=== PATIENT | male | born 1945 | race Caucasian/White ===

== ENCOUNTER → 2021-06-13 13:31 | Outpatient (BNVA) | payer MEDICARE, SELFPAY | PROVIDERS: PCP Pediatrics; Visit Provider Nurse Practitioner Family | DX: G47.33 Obstructive sleep apnea (adult) (pediatric) (principal); F03.90 Unspecified dementia, unspecified severity, without behavioral disturbance, psychotic disturbance, mood disturbance, and anxiety | CPT/HCPCS: Q3014 ==

== ENCOUNTER 2021-09-14 21:09 | Emergency (ER) | payer MEDICARE, SELFPAY ==
--- NOTE | ~2021-09-14 | XR_ITS ---
EXAMINATION: XR CHEST CLINICAL INFORMATION: Weakness COMPARISON: None TECHNIQUE: Frontal view of the chest was obtained. FINDINGS: Lungs are clear. No focal consolidation or mass. Normal pulmonary vascularity. No pleural effusion or pneumothorax. Normal heart size. No acute osseous abnormality. XR/XR chest 1V IMPRESSION: No acute pulmonary disease.
--- NOTE | ~2021-09-14 | CT_ITS ---
EXAMINATION: CT HEAD WITHOUT CONTRAST CLINICAL INFORMATION: Altered mental status. COMPARISON: None available. TECHNIQUE: Contiguous axial imaging was performed from the skull base to vertex without intravenous administration of contrast. This CT examination was performed using dose optimization techniques as appropriate, variously including the following: *Automated exposure control. *Adjustment of mA and/or kV according to patient size (this includes techniques or standardized protocols for targeted exams where dose is matched to indication/reason for exam; i.e. extremities or head). *Use of iterative reconstruction technique. DLP: 642 mGy-cm FINDINGS: There is no evidence of acute intracranial hemorrhage or edematous territorial infarction. Scattered hypoattenuation in the periventricular and deep white matter are consistent with moderate microangiopathy. Ricks-white matter differentiation is preserved. Proportional prominence of the ventricles and sulcal spaces. No evidence for obstructive hydrocephalus. No abnormal mass effect or midline shift. No extra-axial fluid collections. Calcific atherosclerotic disease of the intracranial internal carotid and vertebral arteries. No hyperdense vessel sign. No acute soft tissue or osseous abnormalities. Mild mucosal thickening of the paranasal sinuses. Moderate rightward nasal septal deviation with spurring. The mastoid air cells and middle ear cavities are clear. CT/CT head/brain wo con IMPRESSION: 1. No evidence of acute intracranial hemorrhage or edematous territorial infarction. 2. Moderate underlying microangiopathy and generalized cerebral volume loss.
[2021-09-14 21:21] VITALS: BP 160/70; PULSE 71; O2SAT 98; BMI 27.6
--- NOTE | 2021-09-14 21:25 | ECG_ITS ---
Test Reason : ALTERED MENTAL STATUS Blood Pressure : / mmHG Vent. Rate : 066 BPM Atrial Rate : 066 BPM P-R Int : 144 ms QRS Dur : 090 ms QT Int : 408 ms P-R-T Axes : 070 024 067 degrees QTc Int : 427 ms Normal sinus rhythm Normal ECG No previous ECGs available Referred By: Tania Ramirez Electronically Signed By:LINH YAO
[2021-09-14 21:29] VITALS: BP 146/68; PULSE 66; RESP 16; TEMP 37.2; O2SAT 98
--- NOTE | 2021-09-14 21:31 | ED.AMS ---
HPI - Altered Mental Status General Chief Complaint: Altered Mental Status Stated Complaint: AMS Time Seen by Provider: 09/14/21 21:24 Source: patient Mode of arrival: EMS Limitations: altered mental status (dementia) History of Present Illness HPI narrative: 76 yo male with hx of hypothyroidism, HTN, dementia found wandering unure why he is here has no complaints, talking about fernanda MACHUCA complaint: altered mental status (wandering) Onset (ago): year(s) (has dementia but hasn't wandered this long) Timing confirmed by: family member Severity: moderate Consistency of symptoms: constant Context: other (dementia) Associated symptoms: denies other symptoms Related Data Home Medications Medication Instructions Recorded Confirmed aspirin 81 mg tablet,delayed 81 mg PO DAILY 06/13/21 06/13/21 release donepezil 10 mg tablet 10 mg PO DAILY 06/13/21 06/13/21 levothyroxine 100 mcg tablet 100 mcg PO DAILY 06/13/21 06/13/21 lisinopril 40 mg tablet 40 mg PO DAILY 06/13/21 06/13/21 lovastatin 40 mg tablet 40 mg PO DAILY 06/13/21 06/13/21 memantine 28 mg capsule 28 mg PO DAILY 06/13/21 06/13/21 sprinkle,extended release 24hr omeprazole 20 mg capsule,delayed 20 mg PO DAILY 06/13/21 06/13/21 release quetiapine 25 mg tablet 12.5 mg PO BID PRN 06/13/21 06/13/21 spironolactone 25 mg tablet 25 mg PO DAILY 06/13/21 06/13/21 Allergies Allergy/AdvReac Type Severity Reaction Status Date / Time No Known Allergies Allergy Verified 06/13/21 13:31 Review of Systems Review of Systems: ROS unable to be obtained due to dementia [facility] Past Medical History Attestation statement: The following information was validated with the patient. Medical History Dementia Obstructive sleep apnea Social History Social History Alcohol intake: never Patient Tobacco Use Status: Never used Tobacco Use of substances other than those prescribed or required for medical reasons: No Physical Exam ED Vital Signs: Vital Signs - 24 hr 09/14/21 21:29 Temperature 98.9 F Pulse Rate 66 Respiratory Rate 16 Blood Pressure 146/68 H Pulse Oximetry 98 Oxygen Delivery Method Room Air BMI result Body Mass Index 27.6 Appearance: Alert. Oriented X 1 to self. No acute distress. Eyes: Pupils equal, round and reactive to light. ENT: Pharynx normal. Neck: Normal inspection. Neck supple. CVS: Normal heart rate and rhythm. Pulses normal. Respiratory: No respiratory distress. Breath sounds normal. Abdomen: Soft and non-tender. Skin: Skin warm and dry. Normal skin color. Normal skin turgor. Extremities: No lower extremity edema. No calf ttp Neuro: Oriented X 1 to self. No motor deficit. No sensory deficit. Course Course Course Narrative: mild bump in CPK - IVF ordered, pending UA - CT scan negative Patient placed in physician observation at 1103pm. The indication for observation is that the patient needs more for case management to help with safe discharge as family notified RN they may need more help at home. At this time the patient is well developed well nourished, lungs clear, CV RRR, abd nontender, neuro is nonfocal, gentle fluids ordered, PRN seroquel. MDM - Altered Mental Status MDM Narrative Medical decision making narrative: 76 yo male with hx of hypothyroidism, HTN, dementia found wandering unure why he is here has no complaints, talking about [place] - at this time no signs of trauma but will obtain basic labs, EKG, UA for infection, CXR for pneumonia CT head for ICH though possibly just sequela of his disease. Lab Data Result diagrams: 09/14/21 21:39 09/14/21 21:39 Labs: Lab Results 09/14/21 09/14/21 09/14/21 Range/Units 21:39 21:39 21:39 WBC 8.7 (4.8-10.8) X10*3/uL RBC 4.74 (4.60-5.80) X10*6/uL Hgb 14.9 (14.0-18.0) g/dl Hct 43.2 (42.0-52.0) % MCV 91.1 (80.0-98.0) fL MCH 31.4 (27.0-33.0) pg MCHC 34.5 (31.0-36.0) g/dl RDW 13.3 (11.0-16.0) % Plt Count 189 (160-400) X10*3/uL MPV 10.7 (9.4-12.4) fL Immature Gran % (Auto) 0.3 (0.0-0.4) % Neut % (Auto) 69.6 (45-73) % Lymph % (Auto) 21.7 (20-40) % [place] % (Auto) 7.8 (2-11) % Eos % (Auto) 0.3 (0-4) % Baso % (Auto) 0.3 (0-2) % Lymph # (Auto) 1.9 (1.2-4.9) X10*3/uL [place] # (Auto) 0.7 (0.1-1.2) X10*3/uL Eos # (Auto) 0.0 (0.0-0.4) X10*3/uL Baso # (Auto) 0.0 (0.0-0.2) X10*3/uL Abs Immat Gran (auto) 0.03 (0.00-0.03) X10*3/uL Absolute Neuts (auto) 6.0 (2.0-8.3) x10*3/uL Absolute Nucleated RBC 0.000 (0.0-0.012) X10*3/uL Nucleated RBC % (auto) 0.0 (0.0-0.2) /100WBC Sodium 143 (135-145) mmol/L Potassium 4.3 (3.3-5.1) mmol/L Chloride 108 (96-108) mmol/L Carbon Dioxide 27 (22-29) mmol/L Anion Gap 12 (12-20) BUN 20 H (9-16) mg/dL Creatinine 1.02 (0.5-1.4) mg/dL Estim Creat Clear Calc 57.2 Estimated GFR > 60 Random Glucose 102 (60-115) mg/dL Calcium 9.5 (8.4-10.2) mg/dL Magnesium 2.1 (1.6-2.6) mg/dL Total Bilirubin 1.2 H (0.0-1.0) mg/dL Direct Bilirubin 0.5 (0.0-0.5) mg/dL AST 22 (5-37) U/L ALT 19 (0-40) U/L Alkaline Phosphatase 52 (39-117) U/L Total Creatine Kinase 728 H (38-174) U/L Total Protein 6.9 (6.5-8.0) g/dL Albumin 4.3 (3.5-5.0) g/dL COVID-19 (JOANNA) Negative (Negative) COVID-19 Clin Com See Note ECG Data ECG #1: Attestation: I personally reviewed and interpreted this ECG as follows: ECG interpretation date: 09/14/21 ECG interpretation time: 22:12 Interpretation: Rate: 66 Rhythm: NSR [place]: normal Normal P waves. Normal PHILLIP. Normal QRS complex. ST T wave : normal no KENTRELL qTC: normal prior studies: no acute ischemia The study has been interpreted contemporaneously by me. . Discharge Plan Discharge Clinical Impression: Dementia Patient Disposition: Still a Patient Prescriptions: No Action donepezil 10 mg tablet 10 mg PO DAILY lisinopril 40 mg tablet 40 mg PO DAILY levothyroxine 100 mcg tablet 100 mcg PO DAILY omeprazole 20 mg capsule,delayed release(DR/EC) 20 mg PO DAILY spironolactone 25 mg tablet 25 mg PO DAILY lovastatin 40 mg tablet 40 mg PO DAILY memantine 28 mg capsule,sprinkle,ER 24hr 28 mg PO DAILY quetiapine 25 mg tablet 12.5 mg PO BID PRN aspirin 81 mg tablet,delayed release (DR/EC) 81 mg PO DAILY
[2021-09-14 21:51] LABS: MANUAL DIFF FLAG NO
[2021-09-14 21:53] LABS: Basophils Percent Auto 0.3 % (0-2); Eosinophils Percent Auto 0.3 % (0-4); Hematocrit 43.2 % (42.0-52.0); Hemoglobin 14.9 g/dl (14.0-18.0); Imm Gran Abs Auto 0.03 X10*3/uL (0.00-0.03); Imm Gran Pct Auto 0.3 % (0.0-0.4); Lymphocytes Absolute Auto 1.9 X10*3/uL (1.2-4.9); Lymphocytes Percent Auto 21.7 % (20-40); Mean Corpuscular HGB Conc 34.5 g/dl (31.0-36.0); Mean Corpuscular Hemoglobin 31.4 pg (27.0-33.0); Mean Corpuscular Volume 91.1 fL (80.0-98.0); Mean Platelet Volume 10.7 fL (9.4-12.4); Monocytes Absolute Auto 0.7 X10*3/uL (0.1-1.2); Monocytes Percent Auto 7.8 % (2-11); Neutrophils Percent Auto 69.6 % (45-73); Platelet Count 189 X10*3/uL (160-400); Red Blood Count 4.74 X10*6/uL (4.60-5.80); Red Cell Distribution Width 13.3 % (11.0-16.0); White Blood Count 8.7 X10*3/uL (4.8-10.8)
[2021-09-14 22:00] VITALS: BP 147/83; PULSE 60; RESP 16; O2SAT 96
[2021-09-14 22:12] LABS: Alanine Aminotransferase 19 U/L (0-40); Albumin Level 4.3 g/dL (3.5-5.0); Alkaline Phosphatase 52 U/L (39-117); Anion Gap 12 (12-20); Aspartate Amino Transferase 22 U/L (5-37); Bilirubin Direct 0.5 mg/dL (0.0-0.5); Bilirubin Total 1.2 mg/dL (0.0-1.0); Blood Urea Nitrogen 20 mg/dL (9-16); Calcium 9.5 mg/dL (8.4-10.2); Carbon Dioxide 27 mmol/L (22-29); Chloride 108 mmol/L (96-108); Creatinine Clr Calc Pharmacy 57.2; Estimated Glomerular Filt Rate > 60; Glucose Random 102 mg/dL (60-115); Magnesium 2.1 mg/dL (1.6-2.6); Potassium 4.3 mmol/L (3.3-5.1); Sodium 143 mmol/L (135-145); Total Protein 6.9 g/dL (6.5-8.0)
[2021-09-14 22:16] LABS: COVID-19 Test Negative (Negative); IDNOW Serial# 9DB6401D
[2021-09-14] MEDS: QUEtiapine Fumarate 25 MG TABLET 12.5 MG PO (23:19)
[2021-09-14] MEDS: 0.9 % Sodium Chloride 1,000 ML 999 ML IV (23:42)
--- NOTE | 2021-09-14 23:42 | PC.NURSE ---
20g IV inserted in Right forearm. Fluids running.
[2021-09-14 23:52] VITALS: BP 143/75; PULSE 62; RESP 16; TEMP 36.8; O2SAT 100
[2021-09-15] VITALS (7 sets, daily range): BP systolic 118–152; BP diastolic 49–78; PULSE 45–88; RESP 14–18; TEMP 36.9; O2SAT 97–100
[2021-09-15] MEDS: Melatonin 3 MG TABLET 6 MG PO (01:23)
[2021-09-15] MEDS: OLANZapine 5 MG TABLET PO (01:23)
--- NOTE | 2021-09-15 02:30 | PC.NURSE ---
Pt is forgetful, repeats the question you ask him multiple times before he answers. most of his conversation is with the years he served. pt ambulated to bathroom with steady gait, pt forgot to void in the cup, the cup was wet but no urine collected. pt dumped the urine. pt asking for his from time to time. evening snack given needs at bedside, curtain open.
--- NOTE | 2021-09-15 08:16 | PC.NURSE ---
patient alert to self . skin warm dry intact . appears comfortable . hope lanza within reach
--- NOTE | 2021-09-15 10:02 | MHC.CM.ED ---
Received case management consult overnight. Patient came to ER due to AMS. Work up essentially negative. Physical therapy eval is pending. Patient is currently confused. No family is at bedside. Attempted to speak to patient's , Lara via telephone at [phone]. Left message requesting return telephone call. Continue to monitor for d/c needs.
--- NOTE | 2021-09-15 10:26 | MHC.CM.ED ---
Received return telephone call from patient's wie, Lara. Patient is from home with Lara, ambulates independently, has a home health aide from [facility] and has a nurse outreach case manager through [facility]. Patient was diagnosed with dementia 3 years ago. Patient has not followed up with a neurologist or psychiatrist since then. Patient was brought to the ER due to confusion. Work up was essentially negative. Lara is requesting patient be seen about medication changes. Alana LEMONS has been asked to order a psych consult for medication recommendations. Lara is aware patient will be in the ER until this is done but may be discharged home on Friday. Lara requesting CM call her sister, Sheila Boyer via telephone at [phone] when a discharge plan is made because Sheila has been helping her with this patient. Continue to monitor for d/c needs.
[2021-09-15] MEDS: 0.9 % Sodium Chloride 1,000 ML 999 ML IV (11:46)
--- NOTE | 2021-09-15 11:53 | ECG_ITS ---
Test Reason : BRADYCARDIA Blood Pressure : / mmHG Vent. Rate : 046 BPM Atrial Rate : 046 BPM P-R Int : 154 ms QRS Dur : 082 ms QT Int : 458 ms P-R-T Axes : 067 028 068 degrees QTc Int : 400 ms Sinus bradycardia Otherwise normal ECG When compared with ECG of 14-SEP-2021 21:59, No significant change was found Referred By: Olinda Briscoe Electronically Signed By:LINH YAO
--- NOTE | 2021-09-15 12:01 | PC.NURSE ---
patient vitals presented with bradycardia with a pulse between 45-50 . provider aware . EKG ordered and obtained . patient put on quality assurance monitor final . patient asymptomatic . awake and alert . IV placed on right AC tolerated well .
--- NOTE | 2021-09-15 12:36 | PC.NURSE ---
SUHA Sosa [phone] given update at this time, plan to call back to further discuss plan of care.
[2021-09-15 13:09] LABS: Appearance Urine CLEAR; Color Urine YELLOW; Glucose Urine UA NEG (NEG); Leukocyte Esterase Urine NEG (NEG); Nitrite Urine NEG (NEG); PH 5.5 (5.0-8.0); Specific Gravity - Urine 1.025 (1.005-1.025); UACC Culture Trigger NO; Urine Blood 1+ (NEG); Urine Ketones NEG (NEG); Urine Protein NEG (NEG-TRACE)
[2021-09-15 13:21] LABS: Squamous Epithelial Cell Urine 1+ /LPF; WBC Urine 0 /HPF (0-4)
--- NOTE | 2021-09-15 15:05 | P.CNPS_ITS ---
History of Present Illness Date of Service: 09/15/2021 Chief Complaint: AMS Reason for Consult: combative behaviors Requesting physician: Alana Esparza Discussed with referring provider: Yes Sources of Information: patient interviewed, chart reviewed and crisis/core team assessment reviewed HPI Narrative: Mr. Herrera is a 76 year-old hx of Alzheimer Dementia possible mixed etiology who was [place] [facility] [place] family due to episode of combativeness. Labs- CBC unremarkable, CMP slight elevation in BUN, CK elevated >700 but trending down with fluids. Head CT- completed- No evidence of acute intracranial hemorrhage or edematous territorial infarction. 2. Moderate underlying microangiopathy and generalized cerebral volume loss. Pt while in ED had one episode of agitation at night, given Olanzapine po. At this moment it appears pt awaiting placement in memory unit if family in agreement. Medical Evaluation Reviewed: Yes [facility] Medical History Dementia Obstructive sleep apnea Diagnostics Vital Signs (24Hr): Vital Signs - 24 hr 09/14/21 21:29 09/14/21 22:00 09/14/21 23:52 Temperature 98.9 F 98.2 F Pulse Rate 66 60 62 Respiratory Rate 16 16 16 Blood Pressure 146/68 H 147/83 H 143/75 H Pulse Oximetry 98 96 100 Oxygen Delivery Method Room Air Room Air Room Air 09/15/21 03:16 09/15/21 06:21 09/15/21 08:14 Temperature 98.4 F Pulse Rate 63 68 52 Respiratory Rate 16 16 16 Blood Pressure 146/72 H 146/65 H 120/57 L Pulse Oximetry 100 100 98 Oxygen Delivery Method Room Air Room Air Room Air 09/15/21 11:47 Temperature Pulse Rate 45 L Respiratory Rate 16 Blood Pressure 141/78 H Pulse Oximetry 99 Oxygen Delivery Method Room Air BMI result Body Mass Index 27.6 Labs Results: 09/14/21 21:39 09/14/21 21:39 Labs: Laboratory Results - last 48 hr 09/14/21 09/14/21 09/14/21 21:39 21:39 21:39 WBC 8.7 RBC 4.74 Hgb 14.9 Hct 43.2 MCV 91.1 MCH 31.4 MCHC 34.5 RDW 13.3 Plt Count 189 MPV 10.7 Immature Gran % (Auto) 0.3 Neut % (Auto) 69.6 Lymph % (Auto) 21.7 [place] % (Auto) 7.8 Eos % (Auto) 0.3 Baso % (Auto) 0.3 Lymph # (Auto) 1.9 [place] # (Auto) 0.7 Eos # (Auto) 0.0 Baso # (Auto) 0.0 Abs Immat Gran (auto) 0.03 Absolute Neuts (auto) 6.0 Absolute Nucleated RBC 0.000 Nucleated RBC % (auto) 0.0 Sodium 143 Potassium 4.3 Chloride 108 Carbon Dioxide 27 Anion Gap 12 BUN 20 H Creatinine 1.02 Estim Creat Clear Calc 57.2 Estimated GFR > 60 Random Glucose 102 Calcium 9.5 Magnesium 2.1 Total Bilirubin 1.2 H Direct Bilirubin 0.5 AST 22 ALT 19 Alkaline Phosphatase 52 Total Creatine Kinase 728 H Total Protein 6.9 Albumin 4.3 Urine Color Urine Appearance Urine pH Ur Specific [place] Urine Protein Urine Glucose (UA) Urine Ketones Urine Blood Urine Nitrite Ur Leukocyte Esterase Urine RBC Urine WBC Ur Squamous Epith Cells Urine Bacteria COVID-19 (JOANNA) Negative COVID-19 Clin Com See Note 09/15/21 09/15/21 09/15/21 07:37 11:41 12:50 WBC RBC Hgb Hct MCV MCH MCHC RDW Plt Count MPV Immature Gran % (Auto) Neut % (Auto) Lymph % (Auto) [place] % (Auto) Eos % (Auto) Baso % (Auto) Lymph # (Auto) [place] # (Auto) Eos # (Auto) Baso # (Auto) Abs Immat Gran (auto) Absolute Neuts (auto) Absolute Nucleated RBC Nucleated RBC % (auto) Sodium Potassium Chloride Carbon Dioxide Anion Gap BUN Creatinine Estim Creat Clear Calc Estimated GFR Random Glucose Calcium Magnesium Total Bilirubin Direct Bilirubin AST ALT Alkaline Phosphatase Total Creatine Kinase 795 H 719 H Total Protein Albumin Urine Color YELLOW Urine Appearance CLEAR Urine pH 5.5 Ur Specific [place] 1.025 Urine Protein NEG Urine Glucose (UA) NEG Urine Ketones NEG Urine Blood 1+ H Urine Nitrite NEG Ur Leukocyte Esterase NEG Urine RBC 1-4 Urine WBC 0 Ur Squamous Epith Cells 1+ Urine Bacteria NONE COVID-19 (JOANNA) COVID-19 Clin Com Imaging Radiology Impressions: ITS Impressions Chest X-Ray 09/14/21 21:48 IMPRESSION: No acute pulmonary disease. Head CT 09/14/21 21:48 IMPRESSION: 1. No evidence of acute intracranial hemorrhage or edematous territorial infarction. 2. Moderate underlying microangiopathy and generalized cerebral volume loss. Mental Status Exam Mental Status Exam Narrative: Appearance: appears younger than stated age, lying in bed, pleasant in NAD Behavior: friendly Psychomotor: no agitation or retardation noted Speech: mumbles, significant expressive aphasia noted, spontaneous TP: derailment, confabulation TC: talks about his time in [place] HI: none SI: none VH/AH: no signs of psychosis Delusions: no signs of delusional content Insight/judgment: severely impaired Memory/cog: alert, not oriented to place, month, year, situation. severely impaired s/s to dementia. Medications Medications Current Medications Pharmacy Consult (Consult Rx Perform Med Rec) 1 each MISCELLANE ONCE PRN PRN Reason: Consult order Quetiapine Fumarate (Quetiapine Fumarate 25 Mg Tablet) 25 mg PO BID DEBBY Stop: 09/25/21 20:59 Quetiapine Fumarate (Quetiapine Fumarate 25 Mg Tablet) 25 mg PO Q6H PRN PRN Reason: agitation Stop: 09/22/21 14:53 Allergies Allergies Allergy/AdvReac Type Severity Reaction Status Date / Time No Known Allergies Allergy Verified 06/13/21 13:31 Assessment & Plan Assessment & Plan (1) Alzheimer's dementia with behavioral disturbance: Status: Acute Code(s): G30.9 - Alzheimer's disease, unspecified; F02.81 - Dementia in other diseases classified elsewhere with behavioral disturbance Assessment and Plan: Mr. Herrera is a 76 year-old male with hx of alzheimer's dementia possible mixed etiology. Pt presents with severe expressive aphasia, not oriented to place, situation, month, year- suspect at this point his dementia is quiet advance. PLAN - At this point do not recommend asaf psych, can follow up outpatient especially if he goes to memory clinic with psychiatric services. - Pt does not have capacity to make medical decisions- invoke HCP if any available -Pt has been on donepezil- noted that pt is bradycardic, will recommend to continue 10mg po daily but may consider lowering dose if bradycardia problematic. - Continue Namenda XR 28mg po daily - Can schedule seroquel 25mg po BID for combativeness s/s dementia, prn seroquel 25mg po q6h prn agitation/combativeness. Monitor EKG, Qtc<500ms, maintain K>4, Mg>2. - If need IM medication can try low dose olanzapine 5mg IM for severe agitation and if refusing po medications - waiting for dispo. -consult psychiatry as needed. I spent _25 minutes with the patient and/or on the patient floor today, greater than?50% of which was spent counseling/coordinating care.
--- NOTE | 2021-09-15 15:21 | PHA.MEDREC ---
Pharmacy Consult ? Medication Reconciliation Pharmacy has completed the medication reconciliation. Spoke to patients
--- NOTE | 2021-09-15 16:12 | PC.NURSE ---
SUHA Sosa updated on plan of care and agrees to plan
[2021-09-15] MEDS: QUEtiapine Fumarate 25 MG TABLET PO (16:33)
--- NOTE | 2021-09-15 16:34 | PC.NURSE ---
patient redirected several times back to room , increased confusion . patient began to become increased with agitation . medicated prn serqual given as ordered . results pending .
[2021-09-15] MEDS: Donepezil HCl 10 MG TABLET PO (16:46)
--- NOTE | 2021-09-16 | ECG_ITS ---
Test Reason : BRADYCARDIA Blood Pressure : / mmHG Vent. Rate : 048 BPM Atrial Rate : 048 BPM P-R Int : 150 ms QRS Dur : 086 ms QT Int : 458 ms P-R-T Axes : 066 036 067 degrees QTc Int : 409 ms Sinus bradycardia Otherwise normal ECG When compared with ECG of 15-SEP-2021 11:48, No significant change was found Referred By: Olinda Briscoe Electronically Signed By:Shaun Arguelles
[2021-09-16 00:19] VITALS: BP 107/57; PULSE 45; RESP 14; O2SAT 97
[2021-09-16 00:43] VITALS: PULSE 40
[2021-09-16 01:47] VITALS: BP 148/71; PULSE 41; RESP 13; O2SAT 99
[2021-09-16 02:24] VITALS: BP 149/73; PULSE 49; RESP 12; O2SAT 100
--- NOTE | 2021-09-16 02:25 | PC.NURSE ---
Patient's heart rate ranging between 36-53, asymptomatic. D Youssef aware. EKG done at bedside. Vitals updated. Will monitor closely.
[2021-09-16] MEDS: QUEtiapine Fumarate 25 MG TABLET PO (08:06)
--- NOTE | 2021-09-16 13:32 | MHC.CM.PN ---
MESSAGE LEFT FOR ITZ @ [phone] TO CALL THIS HARDWARE INSTALLER BACK FOR DISCHARGE PLANNING DISCUSSION. CALL TO , JAZZ @ [phone] JAZZ STATES THAT PATIENT DOES NOT HAVE A LTC PAYER SOURCE. SHE DOES TELL CASE MANAGEMENT THAT AN APPLICATION IS IN TO [facility] PATIENT IS ACTIVE WITH [facility] AND IT IS SUGGESTED THAT CONTACT [facility] FOR AN INCREASE IN HOURS/ASSISTANCE IN THE HOME. ASKS THAT PRESCRIPTIONS BE SENT TO [facility] IN [place]. PROVIDER NOTIFIED OF REQUEST AND IN AGREEMENT. IT HAS BEEN SUGGESTED THAT CALL THIS HARDWARE INSTALLER BACK ON Friday09/18/21 TO DISCUSS FURTHER INTERVENTIONS THAT MAY ASSIST IN THE HOME AND WITH HSH ADMISSION,. [facility] ([phone]) IS SCHEDULED FOR 18:00 TRANSPORT FROM [facility] [place] BED 8 TO HIS HOME IN [place]
[2021-09-16 13:56] VITALS: BP 162/78; PULSE 64; RESP 16; O2SAT 99
[2021-09-16 16:47] VITALS: BP 148/78; PULSE 54; RESP 18; TEMP 36.2; O2SAT 99
[2021-09-16] MEDS: 0.9 % Sodium Chloride 1,000 ML 999 ML IV (16:59)
[2021-09-16] MEDS: Donepezil HCl 10 MG TABLET PO (16:59)
[2021-09-16 17:43] LABS: Anion Gap 12 (12-20); Blood Urea Nitrogen 16 mg/dL (9-16); Calcium 8.6 mg/dL (8.4-10.2); Carbon Dioxide 25 mmol/L (22-29); Chloride 107 mmol/L (96-108); Creatinine Clr Calc Pharmacy 74.8; Estimated Glomerular Filt Rate > 60; Glucose Random 89 mg/dL (60-115); Potassium 3.7 mmol/L (3.3-5.1); Sodium 140 mmol/L (135-145)
== END 2021-09-16 18:27 | disposition home or self-care (01) ==
PROVIDERS: Physician Assistant; Emergency Provider Emergency Medicine; PCP Pediatrics
DX: G30.9 Alzheimer's disease, unspecified (principal); F02.81 Dementia in other diseases classified elsewhere, unspecified severity, with behavioral disturbance; I10 Essential (primary) hypertension; Z79.899 Other long term (current) drug therapy; Z20.822 Contact with and (suspected) exposure to COVID-19
CPT/HCPCS: 36415; 70450; 71045; 80048; 80076; 81001; 81003; 82550; 83735; 85025; 87635; 93005; 96360; 96361; 97163; 99285